=== PATIENT | female | born 1975 | race Caucasian/White ===

== ENCOUNTER 2017-06-13 12:09 | Emergency (ER) | payer OTHER ==
[~2017-06-13] VITALS: Ht 165.1 cm; Wt 86.2 kg
[2017-06-13] MEDS ORDERED: PENICILLIN V P500 MG PO (15:09)
[2017-06-13] MEDS ORDERED: ZOFRAN ODT4 MG PO (15:30)
== END 2017-06-13 15:53 | disposition home or self-care (01) ==
LOC: ED 12:09
DX: J02.0 Streptococcal pharyngitis (principal); Z88.0 Allergy status to penicillin
CPT/HCPCS: 96372; 99283; J0561

== ENCOUNTER 2024-02-21 14:44 | Emergency (ER) | payer BC, OTHER ==
[~2024-02-21] VITALS: Ht 165.1 cm; Wt 100.2 kg
[~2024-02-21 14:44] MED LIST: PENICILLIN V P500 MG PO; ZOFRAN ODT4 MG PO
[2024-02-21] MEDS ORDERED: COZAAR25 MG PO (15:05)
[2024-02-21 16:16] VITALS: BP 167/106
== END 2024-02-21 16:17 | disposition home or self-care (01) ==
LOC: ED 14:44
DX: R04.0 Epistaxis (principal); I10 Essential (primary) hypertension; Z79.899 Other long term (current) drug therapy
CPT/HCPCS: 99283